=== PATIENT | female | born 1955 | race Caucasian/White ===

== ENCOUNTER 2017-12-07 17:54 | Emergency (ER) | payer MEDICARE ==
[~2017-12-07] VITALS: Ht 162.6 cm; Wt 41.1 kg
[2017-12-07 18:03] VITALS: TEMP 97.9
[2017-12-07 18:51] LABS: BASO # 0.1 (0.0-0.2); BASO % 0.7 % (0.0-2.0); EOS # 0.1 (0.0-0.7); EOS % 0.6 % (0-4.0); GRAN # 6.7 (1.4-6.5); GRAN % 78.1 % (42.2-75.2); HEMATOCRIT 47.5 % (37.0-47.0); HEMOGLOBIN 17.4 g/dl (12.5-16.0); LYMPH # 1.2 (1.2-3.4); LYMPH % 14.1 % (20.0-51.0); MEAN CELL VOLUME 82 fl (80.0-100.0); MEAN CORPUSCULAR HEMOGLOBIN 30 pg (27.0-31.0); MEAN CORPUSCULAR HGB CONC 37 g/dl (33.0-37.0); MEAN PLATELET VOLUME 10.1 fl (7.4-10.4); MONO # 0.5 (0.1-0.6); MONO % 6.3 % (1.7-9.3); PLATELET COUNT 171 K/mm3 (130-400); RED BLOOD COUNT 5.79 M/mm3 (4.10-5.30); REDCELL DISTRIBUTION WIDTH-CV 12.5 % (11.5-14.5)
[2017-12-07 19:35] LABS: ALANINE AMINOTRANSFERASE 33 U/L (9-52); ALBUMIN 4.4 gm/dL (3.5-5.0); ALKALINE PHOSPHATASE 120 U/L (50-136); ANION GAP 12 mmol/L (7-16); AST,SGOT 27 U/L (15-37); BILIRUBIN,TOTAL 1.5 mg/dL (0.0-1.0); BLOOD UREA NITROGEN 9 mg/dL (7-17); CALCIUM 9.3 mg/dL (8.4-10.2); CARBON DIOXIDE 27 mmol/L (22-30); CREATININE, serum 0.47 mg/dL (0.52-1.25); LIPASE 59 U/L (23-300); POTASSIUM 3.7 mmol/L (3.4-5.0); SODIUM 125 mmol/L (137-145); TOTAL PROTEIN 7.5 gm/dL (6.4-8.2)
[2017-12-07 19:37] LABS: ACETONE,SERUM NEGATIVE
[2017-12-07 19:38] LABS: CHLORIDE 86 mmol/L (98-107); GLUCOSE 443 mg/dL (74-106)
[2017-12-07] MEDS ORDERED: HUMALOG PEN100 U/ML SQ (20:09)
[2017-12-07 20:15] VITALS: BP 123/88; PULSE 100
== END 2017-12-07 20:32 | disposition home or self-care (01) ==
LOC: COL.ER 17:54
PROVIDERS: Emergency Medicine
DX: E11.65 Type 2 diabetes mellitus with hyperglycemia (principal); E87.1 Hypo-osmolality and hyponatremia; I10 Essential (primary) hypertension; Z90.710 Acquired absence of both cervix and uterus; F17.210 Nicotine dependence, cigarettes, uncomplicated
CPT/HCPCS: J1815; J7030

== ENCOUNTER 2018-02-22 23:29 | Inpatient (IN) | payer MEDICARE ==
[~2018-02-22] VITALS: Ht 162.6 cm; Wt 44.7 kg
[~2018-02-22 23:29] MED LIST: HUMALOG PEN100 U/ML SQ
[2018-02-23 00:02] LABS: COLLECTION METHOD CATHETER
[2018-02-23 00:13] LABS: PH 6 (5-8); SQUAMOUS EPITHELIAL 0-2 /hpf; URINE APPEARANCE Clear; URINE BACTERIA None Seen /hpf; URINE BILIRUBIN Negative (NEGATIVE); URINE BLOOD 2+ (NEGATIVE); URINE COLOR Straw; URINE GLUCOSE 3+ (NEGATIVE); URINE KETONE Negative (NEGATIVE); URINE LEUKOCYTE ESTERASE Negative (NEGATIVE); URINE NITRATE Negative (NEGATIVE); URINE PROTEIN(semi-quant) Negative (NEGATIVE); URINE RBC 0-2 /hpf; URINE UROBILINOGEN Negative (NEGATIVE)
[2018-02-23 00:14] LABS: TRICYCLIC ANTIDEPRESS URINE NEGATIVE
[2018-02-23 00:25] LABS: ALANINE AMINOTRANSFERASE 38 U/L (9-52); ALBUMIN 3.6 gm/dL (3.5-5.0); ALKALINE PHOSPHATASE 184 U/L (50-136); ANION GAP 12 mmol/L (7-16); AST,SGOT 34 U/L (15-37); BILIRUBIN,TOTAL 1.1 mg/dL (0.0-1.0); BLOOD UREA NITROGEN 18 mg/dL (7-17); C-REACTIVE PROTEIN 1.1 mg/dL (0.0-0.9); CALCIUM 9.2 mg/dL (8.4-10.2); CARBON DIOXIDE 28 mmol/L (22-30); LIPASE 301 U/L (23-300); POTASSIUM 3.2 mmol/L (3.4-5.0); SODIUM 123 mmol/L (137-145); TOTAL PROTEIN 6.8 gm/dL (6.4-8.2)
[2018-02-23 00:31] LABS: CHLORIDE 83 mmol/L (98-107); GLUCOSE 863 mg/dL (74-106); MAGNESIUM 0.9 mg/dL (1.6-2.3)
[2018-02-23 00:37] LABS: TROPONIN-I < 0.012 ng/mL (0.000-0.034)
[2018-02-23] MEDS ORDERED: CEPHALEXIN500 M1 PO (01:30)
[2018-02-23 01:44] LABS: BASO % 0.1 % (0.0-2.0); GRAN # 6.2 (1.4-6.5); GRAN % 87.5 % (42.2-75.2); HEMATOCRIT 43.8 % (37.0-47.0); LYMPH # 0.4 (1.2-3.4); LYMPH % 5.5 % (20.0-51.0); MEAN CELL VOLUME 80 fl (80.0-100.0); MEAN CORPUSCULAR HEMOGLOBIN 30 pg (27.0-31.0); MEAN CORPUSCULAR HGB CONC 38 g/dl (33.0-37.0); MEAN PLATELET VOLUME 10.2 fl (7.4-10.4); MONO # 0.5 (0.1-0.6); MONO % 6.6 % (1.7-9.3); PLATELET COUNT 129 K/mm3 (130-400); REDCELL DISTRIBUTION WIDTH-CV 12.3 % (11.5-14.5)
[2018-02-23 01:46] LABS: HEMOGLOBIN 16.6 g/dl (12.5-16.0)
[2018-02-23 02:50] LABS: CREATININE, serum 0.66 mg/dL (0.52-1.25); POTASSIUM 3.6 mmol/L (3.4-5.0)
[2018-02-23 02:51] LABS: CALCIUM 9.4 mg/dL (8.4-10.2)
[2018-02-23] MEDS ORDERED: TYLENOL 500MG500 MG PO (02:52)
[2018-02-23] MEDS ORDERED: ASPIRIN 81M81 MG/TA2 PO (02:53)
[2018-02-23 02:55] VITALS: BP 139/89; PULSE 111; TEMP 98.8
[2018-02-23 05:28] LABS: CALCIUM 9.6 mg/dL (8.4-10.2); CREATININE, serum 0.68 mg/dL (0.52-1.25); POTASSIUM 3.8 mmol/L (3.4-5.0)
[2018-02-23 07:35] LABS: CALCIUM 9.5 mg/dL (8.4-10.2); CREATININE, serum 0.7 mg/dL (0.52-1.25); POTASSIUM 3.9 mmol/L (3.4-5.0)
[2018-02-23 08:20] VITALS: BP 118/94; PULSE 102; TEMP 99.7
[2018-02-23 09:17] LABS: CALCIUM 9.4 mg/dL (8.4-10.2); CREATININE, serum 0.67 mg/dL (0.52-1.25); POTASSIUM 4.4 mmol/L (3.4-5.0)
[2018-02-23 11:11] LABS: CHOLESTEROL RISK RATIO 2.7
[2018-02-23 11:34] LABS: CALCIUM 8.6 mg/dL (8.4-10.2); CREATININE, serum 0.59 mg/dL (0.52-1.25); POTASSIUM 4.4 mmol/L (3.4-5.0)
[2018-02-23 12:30] VITALS: BP 106/79; PULSE 97; TEMP 99.5
[2018-02-23 13:32] LABS: CALCIUM 8.6 mg/dL (8.4-10.2); CREATININE, serum 0.64 mg/dL (0.52-1.25); POTASSIUM 4.6 mmol/L (3.4-5.0)
[2018-02-23 15:02] LABS: CALCIUM 8.3 mg/dL (8.4-10.2); CREATININE, serum 0.56 mg/dL (0.52-1.25); POTASSIUM 4.1 mmol/L (3.4-5.0)
[2018-02-23 16:05] VITALS: BP 127/78; PULSE 88; TEMP 99
[2018-02-23 17:37] LABS: CALCIUM 8.6 mg/dL (8.4-10.2); CREATININE, serum 0.58 mg/dL (0.52-1.25); POTASSIUM 4.5 mmol/L (3.4-5.0)
[2018-02-23 20:00] VITALS: BP 132/83; PULSE 84; TEMP 98.5
[2018-02-24] VITALS (8 sets, daily range): BP systolic 111–153; BP diastolic 58–82; PULSE 78–112; TEMP 98–99.4
[2018-02-24 05:56] LABS: BASO # 0.1 (0.0-0.2); BASO % 0.6 % (0.0-2.0); EOS # 0.1 (0.0-0.7); EOS % 1.3 % (0-4.0); GRAN % 72.4 % (42.2-75.2); HEMATOCRIT 39.3 % (37.0-47.0); LYMPH # 1.6 (1.2-3.4); LYMPH % 19.8 % (20.0-51.0); MEAN CELL VOLUME 84 fl (80.0-100.0); MEAN CORPUSCULAR HEMOGLOBIN 30 pg (27.0-31.0); MEAN CORPUSCULAR HGB CONC 36 g/dl (33.0-37.0); MEAN PLATELET VOLUME 10.3 fl (7.4-10.4); MONO # 0.5 (0.1-0.6); MONO % 5.8 % (1.7-9.3); PLATELET COUNT 147 K/mm3 (130-400); RED BLOOD COUNT 4.67 M/mm3 (4.10-5.30); REDCELL DISTRIBUTION WIDTH-CV 13.2 % (11.5-14.5)
[2018-02-24 06:10] LABS: CREATININE, serum 0.49 mg/dL (0.52-1.25); MAGNESIUM 1.1 mg/dL (1.6-2.3); POTASSIUM 3.8 mmol/L (3.4-5.0)
[2018-02-25 03:59] VITALS: BP 136/70; PULSE 112
[2018-02-25 08:12] VITALS: BP 143/77; PULSE 93; TEMP 98.8
[2018-02-25 08:15] LABS: BASO % 0.3 % (0.0-2.0); EOS # 0.1 (0.0-0.7); EOS % 1.3 % (0-4.0); GRAN # 5.8 (1.4-6.5); GRAN % 73.4 % (42.2-75.2); HEMATOCRIT 41.1 % (37.0-47.0); HEMOGLOBIN 14.5 g/dl (12.5-16.0); LYMPH # 1.4 (1.2-3.4); LYMPH % 17.7 % (20.0-51.0); MEAN CELL VOLUME 86 fl (80.0-100.0); MEAN CORPUSCULAR HEMOGLOBIN 30 pg (27.0-31.0); MEAN CORPUSCULAR HGB CONC 35 g/dl (33.0-37.0); MEAN PLATELET VOLUME 10.1 fl (7.4-10.4); MONO # 0.6 (0.1-0.6); PLATELET COUNT 154 K/mm3 (130-400); RED BLOOD COUNT 4.77 M/mm3 (4.10-5.30)
[2018-02-25 11:00] LABS: CALCIUM 8.2 mg/dL (8.4-10.2); CREATININE, serum 0.43 mg/dL (0.52-1.25); POTASSIUM 3.1 mmol/L (3.4-5.0)
[2018-02-25 11:06] VITALS: BP 152/78; PULSE 102; TEMP 98.2
[2018-02-25 15:51] VITALS: BP 142/79; PULSE 49; TEMP 98.6
[2018-02-25 19:35] VITALS: BP 131/67; PULSE 108; TEMP 98.9
[2018-02-25 23:34] VITALS: BP 133/62; PULSE 101; TEMP 99
[2018-02-26 04:28] VITALS: BP 133/71; PULSE 96; TEMP 98.5
[2018-02-26 07:30] LABS: CREATININE, serum 0.4 mg/dL (0.52-1.25); MAGNESIUM 1.3 mg/dL (1.6-2.3); PHOSPHOROUS 2.8 mg/dL (2.5-4.5); POTASSIUM 3.4 mmol/L (3.4-5.0)
[2018-02-26 08:31] VITALS: BP 127/65; PULSE 98; TEMP 98.3
[2018-02-26 08:35] LABS: THYROXINE (T4)-TOTAL 7.9 ug/dL (5.5-11.0)
[2018-02-26 08:48] LABS: THYROID STIMULATING HORMONE 0.83 uIU/mL (0.465-4.680)
[2018-02-26 12:10] VITALS: BP 129/58; PULSE 91; TEMP 98.9
[2018-02-26 16:01] VITALS: BP 146/80; PULSE 101; TEMP 98.5
[2018-02-26 20:58] VITALS: BP 180/88; PULSE 114; TEMP 98.7
[2018-02-27 00:05] VITALS: BP 150/64; PULSE 106; TEMP 98.6
[2018-02-27 04:38] VITALS: BP 185/100; PULSE 103; TEMP 98.6
[2018-02-27 06:38] LABS: BASO % 0.7 % (0.0-2.0); EOS # 0.1 (0.0-0.7); EOS % 2.3 % (0-4.0); GRAN # 3.9 (1.4-6.5); GRAN % 70.3 % (42.2-75.2); HEMATOCRIT 37.4 % (37.0-47.0); HEMOGLOBIN 12.9 g/dl (12.5-16.0); LYMPH % 17.1 % (20.0-51.0); MEAN CELL VOLUME 87 fl (80.0-100.0); MEAN CORPUSCULAR HEMOGLOBIN 30 pg (27.0-31.0); MEAN CORPUSCULAR HGB CONC 35 g/dl (33.0-37.0); MEAN PLATELET VOLUME 10.2 fl (7.4-10.4); MONO # 0.5 (0.1-0.6); MONO % 9.2 % (1.7-9.3); PLATELET COUNT 121 K/mm3 (130-400); REDCELL DISTRIBUTION WIDTH-CV 12.5 % (11.5-14.5)
[2018-02-27 06:42] LABS: CALCIUM 7.9 mg/dL (8.4-10.2); CREATININE, serum 0.37 mg/dL (0.52-1.25); MAGNESIUM 1.3 mg/dL (1.6-2.3); PHOSPHOROUS 2.8 mg/dL (2.5-4.5); POTASSIUM 3.7 mmol/L (3.4-5.0)
[2018-02-27 08:05] VITALS: BP 133/68; PULSE 101; TEMP 97.9
[2018-02-27 11:58] VITALS: BP 143/77; PULSE 107; TEMP 97.6
[2018-02-27] MEDS ORDERED: PLAVIX 75MG TAB75 MG PO (13:45)
[2018-02-27] MEDS ORDERED: MAG-OX 400400 MG/TAB PO (13:46)
[2018-02-27] MEDS ORDERED: NOVLOG SQ (13:49)
[2018-02-27] MEDS ORDERED: LIPITOR 10MG10 MG PO (13:52)
[2018-02-27] MEDS ORDERED: LANTUS SOLOS100 U/ML SQ (13:52)
== END 2018-02-27 16:35 | disposition home health service (06) | DRG 637 ==
LOC: COL.ER 23:29 → ICU 02-23 01:16 → MEDICAL 02-24 13:59
PROVIDERS: Emergency Medicine; Family Medicine; Nurse Practitioner; Nurse Practitioner Family; Psychiatry & Neurology Neurology
DX: E11.00 Type 2 diabetes mellitus with hyperosmolarity without nonketotic hyperglycemic-hyperosmolar coma (NKHHC) (principal); I63.8 Other cerebral infarction; E43 Unspecified severe protein-calorie malnutrition; G93.41 Metabolic encephalopathy; Z68.1 Body mass index [BMI] 19.9 or less, adult; E87.2 Acidosis; E87.1 Hypo-osmolality and hyponatremia; E86.0 Dehydration; E87.6 Hypokalemia; F15.10 Other stimulant abuse, uncomplicated; E83.42 Hypomagnesemia; E11.65 Type 2 diabetes mellitus with hyperglycemia; Z79.4 Long term (current) use of insulin; Z91.14 Patient's other noncompliance with medication regimen; F17.210 Nicotine dependence, cigarettes, uncomplicated; R33.9 Retention of urine, unspecified
CPT/HCPCS: 99223-AI; 99232-AI; 99233-AI; 99239; J1200; J1650; J1815; J3475; J3480; J7030

== ENCOUNTER → 2018-06-04 | Outpatient (CLI) | payer MEDICARE, OTHER ==
[~2018-06-04] MED LIST changes: +ASPIRIN 81M81 MG/TA2 PO; +CEPHALEXIN500 M1 PO; +LANTUS SOLOS100 U/ML SQ; +LIPITOR 10MG10 MG PO; +MAG-OX 400400 MG/TAB PO; +NOVLOG SQ; +PLAVIX 75MG TAB75 MG PO; +TYLENOL 500MG500 MG PO
== END ==
LOC: MC.RAD 13:00
DX: N63.20 Unspecified lump in the left breast, unspecified quadrant (principal)

== ENCOUNTER → 2018-08-11 | Outpatient (CLI) | payer MEDICARE, OTHER ==
[2018-08-11 11:31] LABS: HEMATOCRIT 41.1 % (37.0-47.0); HEMOGLOBIN 15.3 g/dl (12.5-16.0); MEAN CELL VOLUME 86 fl (80.0-100.0); MEAN CORPUSCULAR HEMOGLOBIN 32 pg (27.0-31.0); MEAN CORPUSCULAR HGB CONC 37 g/dl (33.0-37.0); MEAN PLATELET VOLUME 8.9 fl (7.4-10.4); PLATELET COUNT 210 K/mm3 (130-400); RED BLOOD COUNT 4.76 M/mm3 (4.10-5.30); REDCELL DISTRIBUTION WIDTH-CV 13.3 % (11.5-14.5)
[2018-08-11 11:40] LABS: ALBUMIN 4.5 gm/dL (3.5-5.0); BILIRUBIN,TOTAL 1.2 mg/dL (0.0-1.0); CALCIUM 9.5 mg/dL (8.4-10.2); CREATININE, serum 0.39 mg/dL (0.52-1.25); POTASSIUM 3.3 mmol/L (3.4-5.0); TOTAL PROTEIN 7.8 gm/dL (6.4-8.2)
[2018-08-11 11:48] LABS: PRE ALBUMIN 23.2 mg/dL (17.6-36.0)
[2018-08-11 12:11] LABS: TSH w REFLEX 1.19 uIU/mL (0.465-4.680)
[2018-08-11 18:58] LABS: BASO % 0.7 % (0.0-2.0); EOS % 0.3 % (0-4.0); GRAN # 4.6 (1.4-6.5); GRAN % 75.9 % (42.2-75.2); LYMPH # 1.1 (1.2-3.4); MONO # 0.3 (0.1-0.6); MONO % 4.8 % (1.7-9.3)
== END ==
LOC: ZCOL.LAB 11:02
PROVIDERS: Family Medicine
DX: R63.6 Underweight (principal)

== ENCOUNTER → 2018-08-13 | Outpatient (CLI) | payer MEDICARE, OTHER | LOC: ZCOL.LAB 11:37 | DX: E87.1 Hypo-osmolality and hyponatremia (principal) ==

== ENCOUNTER → 2018-08-27 | Outpatient (CLI) | payer MEDICARE, OTHER | LOC: ZCOL.LAB 10:36 | DX: E87.1 Hypo-osmolality and hyponatremia (principal) ==

== ENCOUNTER 2019-02-10 11:00 | Outpatient (RCR) | payer MEDICARE, OTHER | END 2019-02-22 | disposition home or self-care (01) | LOC: WSC | DX: M53.3 Sacrococcygeal disorders, not elsewhere classified (principal); M62.81 Muscle weakness (generalized) ==

== ENCOUNTER 2019-03-28 09:00 | Outpatient (RCR) | payer MEDICARE, OTHER | END 2019-06-13 | LOC: WSC | DX: M62.81 Muscle weakness (generalized) (principal) ==

== ENCOUNTER 2020-04-17 22:21 | Emergency (ER) | payer MEDICARE, OTHER ==
[~2020-04-17] VITALS: Ht 162.6 cm; Wt 46.4 kg
[2020-04-17 23:53] LABS: BASO % 0.4 % (0.0-2.0); GRAN # 4.8 (1.4-6.5); GRAN % 85.8 % (42.2-75.2); HEMOGLOBIN 11.6 g/dl (12.5-16.0); LYMPH # 0.5 (1.2-3.4); LYMPH % 8.4 % (20.0-51.0); MEAN CELL VOLUME 86 fl (80.0-100.0); MEAN CORPUSCULAR HEMOGLOBIN 30 pg (27.0-31.0); MEAN CORPUSCULAR HGB CONC 35 g/dl (33.0-37.0); MEAN PLATELET VOLUME 10.1 fl (7.4-10.4); MONO # 0.3 (0.1-0.6); MONO % 4.5 % (1.7-9.3); PLATELET COUNT 100 K/mm3 (130-400); REDCELL DISTRIBUTION WIDTH-CV 13.2 % (11.5-14.5)
[2020-04-17 23:56] LABS: HEMATOCRIT 33.6 % (37.0-47.0)
[2020-04-18 00:01] LABS: INR 1.6 (0.8-3.0); PROTHROMBIN TIME 17.5 SECONDS (9.7-12.8)
[2020-04-18 00:06] LABS: ALBUMIN 3.6 gm/dL (3.5-5.0); BILIRUBIN,TOTAL 1.3 mg/dL (0.0-1.0); CALCIUM 8.5 mg/dL (8.4-10.2); CREATININE, serum 0.47 (0.52-1.25); POTASSIUM 3.1 mmol/L (3.4-5.0); TOTAL PROTEIN 7.2 gm/dL (6.4-8.2)
[2020-04-18 00:18] LABS: C-REACTIVE PROTEIN 14.9 mg/dL (0.0-0.9); TROPONIN-I 0.146 ng/mL (0.000-0.035)
[2020-04-18 01:33] LABS: TRICYCLIC ANTIDEPRESS URINE POSITIVE
[2020-04-18 03:15] VITALS: BP 108/78; PULSE 78; TEMP 98
== END 2020-04-18 03:34 | disposition short-term general hospital (02) ==
LOC: COL.ER 22:21 → ICU 04-18 00:51
PROVIDERS: Emergency Medicine
DX: R06.02 Shortness of breath (principal); F17.210 Nicotine dependence, cigarettes, uncomplicated; Z79.82 Long term (current) use of aspirin; Z79.02 Long term (current) use of antithrombotics/antiplatelets; Z79.4 Long term (current) use of insulin
CPT/HCPCS: 99222; J0696; J7030